=== PATIENT | female | born 1945 | race Caucasian/White ===

== ENCOUNTER → 2020-04-08 | Outpatient (CLI) | payer MEDICARE | LOC: ZCOL.LAB 16:26 | DX: S91.001A Unspecified open wound, right ankle, initial encounter (principal) ==

== ENCOUNTER → 2020-05-06 | Outpatient (CLI) | payer MEDICARE | LOC: ZCOL.LAB 16:42 | DX: S91.001D Unspecified open wound, right ankle, subsequent encounter (principal) ==

== ENCOUNTER → 2020-08-20 | Outpatient (CLI) | payer MEDICARE | LOC: ZCOL.LAB 16:23 | DX: S91.001D Unspecified open wound, right ankle, subsequent encounter (principal) ==

== ENCOUNTER → 2021-03-02 | Outpatient (CLI) | payer MEDICARE | LOC: ZCOL.LAB 16:02 | DX: S91.001D Unspecified open wound, right ankle, subsequent encounter (principal); X58.XXXD Exposure to other specified factors, subsequent encounter ==